=== PATIENT | female | born 1980 | race Caucasian/White ===

== ENCOUNTER 2022-03-12 09:23 | Emergency (ER) | payer OTHER, SELFPAY ==
--- NOTE | ~2022-03-12 | XR_ITS ---
EXAMINATION: XR CHEST CLINICAL INFORMATION: Cough. COMPARISON: None TECHNIQUE: Frontal view of the chest was obtained. FINDINGS: No significant abnormality is noted involving the heart, lungs, mediastinum, bony thorax or soft tissues. XR/XR chest 1V IMPRESSION: No acute cardiopulmonary process.
[2022-03-12 10:10] VITALS: BP 128/77; PULSE 88; RESP 18; TEMP 36.6; BMI 33.8
[2022-03-12] MEDS: Fluorescein Sodium STRIP 1 STRIP EYE-LEFT (12:32)
[2022-03-12] MEDS: Tetracaine HCl/PF 0.5% Oph Sol 4 ML DROPS 3 DROP EYE-LEFT (12:32)
[2022-03-12 12:59] LABS: COVID-19 Test Negative (Negative); IDNOW Serial# 9DB6401D; IDNOW Serial# BCCEAD1C; Influenza A Negative (Negative); Influenza B2 Negative (Negative)
--- NOTE | 2022-03-12 13:53 | ED.GENADULT ---
[facility] - General Adult General Chief complaint: Eye Problems Stated complaint: Eye pain Time Seen by Provider: 03/12/22 11:04 Source: patient Mode of arrival: ambulatory History of Present Illness HPI narrative: 41-year-old female with no significant past medical history presenting to the ED complaining of bilateral eye erythema, pruritus, and watering since yesterday. Also reports nasal congestion, rhinorrhea, cough. Denies fever, chills, ear pain, vision change/loss, SOB/CP, recent travel, sick contacts Onset (ago): day(s) Related Data Previous Rx's Medication Instructions Recorded benzonatate 100 mg capsule 100 mg PO TID PRN cough #14 caps 03/12/22 fluticasone propionate 50 2 spray intranasal DAILY #16 grams 03/12/22 mcg/actuation nasal spray,suspension (Flonase Allergy Relief) olopatadine 0.2 % eye drops 1 drp ophthalmic (eye) DAILY PRN 03/12/22 itching 7 days #2.5 mL Allergies Allergy/AdvReac Type Severity Reaction Status Date / Time No Known Allergies Allergy Verified 03/12/22 10:15 Review of Systems Review of Systems: Constitutional: No Fever, No Chills,No Fatigue, No Malaise ENT/Mouth: No Ear Pain, + Nasal Congestion, No Sinus Pain, No Hoarseness, No sore throat, + Rhinorrhea, No Swallowing Difficulty Eyes: No Eye Pain, No Swelling, + Redness, No Foreign Body, + Discharge, No Vision Changes Cardiovascular: No Chest Pain, No SOB Respiratory: No Cough, No Sputum, No Dyspnea Gastrointestinal: No Nausea, No Vomiting, No Diarrhea, No Constipation, No Abdominal pain Genitourinary: No Dysuria, No Urinary Frequency, No Hematuria Musculoskeletal: No joint pain, No Myalgias, No Joint Swelling Skin: No Skin Lesions, No rash Neuro: No Weakness, No Headache Yes all other systems are reviewed and are negative Constitutional: Constitutional: Reports as per [facility] Past Medical History Attestation statement: The following information was validated with the patient. Social History Social History Advance Directives: No Advance Directives Information Provided: No Physical Exam ED Vital Signs: Vital Signs - 24 hr 03/12/22 10:10 Temperature 97.9 F Pulse Rate 88 Respiratory Rate 18 Blood Pressure 128/77 BMI result Body Mass Index 33.8 Const General: cooperative, healthy appearing, comfortable and no acute distress Orientation/consciousness: patient oriented x3 Limitations: no limitations HENMT Head: Yes normal to inspection and Yes atraumatic Ears: hearing grossly normal bilaterally, external ears normal, TM's normal bilaterally and mastoids normal General nose exam: Normal external nose present Face and sinus: Yes normal facial exam Mouth: Normal oral and palatal mucosa present Throat: Yes posterior oropharynx normal, Yes tonsils normal, Yes uvula midline, No abnormal tonsil, No peritonsillar mass and No uvula laterally displaced Eyes General: appearance normal, both eyes and all related structures Conjunctivae: conjunctival abnormal left conjunctival injection (left) Corneas: corneas normal and fluorescein used (no uptake or ulceration) Pupils: Equal, round and reactive pupils present EOM: EOMs intact bilaterally Direct Ophthalmoscopy: normal light reflex and no photophobia Neck Neck: Yes normal visual inspection and Yes no meningeal signs Resp Effort & Inspection: normal respiratory effort and no respiratory distress Auscultation: clear to auscultation bilaterally, no crackles, no rales and no rhonchi Cardio Rate: regular rate Heart sounds: S1 normal heart sound present and S2 normal heart sound present Skin Rashes: no rashes Wounds: no wounds Neuro General: patient oriented x3, tone normal and no meningeal signs Cranial nerves: Yes Equal, round and reactive pupils present Gait exam (Neuro): Normal gait present Extrem General: Yes normal to inspection Course Course Course Narrative: XR chest 1V IMPRESSION: No acute cardiopulmonary process. 1354--COVID-19 and influenza negative Results discussed with patient including worrisome signs and symptoms and strict return precautions, and when to return to the emergency department. They verbalized understanding and feel safe for discharge at this time. Medications Administered Discontinued Medications Generic Name Dose Route Start Last Admin Trade Name Freq PRN Reason Stop Dose Admin Fluorescein Sodium 1 strip 03/12/22 11:09 03/12/22 12:32 Fluorescein Sodium Strip EYE-LEFT 03/12/22 11:10 1 strip ONCE ONE Administration Tetracaine HCl 3 drop 03/12/22 11:09 03/12/22 12:32 Tetracaine Hcl/Pf 0.5% Oph Mely 4 Ml Drops EYE-LEFT 03/12/22 11:10 3 drop ONCE ONE Administration Medical Decision Making Medical Decision Making MDM Narrative: 41-year-old female with no significant past medical history presenting to the ED complaining of bilateral eye erythema, pruritus, and watering since yesterday. On exam vital signs stable, NAD, nontoxic appearing, bilateral conjunctival injection noted, no fluorescein uptake, no evidence of globe rupture or preseptal/septal cellulitis. Lungs CTA. Concern for viral illness and allergic/viral conjunctivitis. No evidence of corneal abrasion. Lower suspicion for pneumonia Plan: COVID-19/influenza testing, CXR Please refer to course for remaining clinical decision making, interpretation of labs/imaging results, and discussions with consultants and/or family members. Differential Diagnosis Differential Diagnoses: The differential diagnosis associated with the presentation includes as above Lab Data Labs: Lab Results 03/12/22 03/12/22 Range/Units 12:35 12:35 COVID-19 (LILLIE) Negative (Negative) COVID-19 Clin Com See Note Influenza Type A (NEYDA) Negative (Negative) Influenza Type B (NEYDA) Negative (Negative) Influenza A & B Note See Note Radiology Impression Discussion of test interpretation with radiology: I have reviewed the radiologist's reading. Prescription Management I considered prescription management with: Antiviral and Antibiotic Discharge Plan Discharge Clinical Impression: Acute viral syndrome, Acute allergic conjunctivitis Patient Disposition: Home, Self-Care Instructions: Viral Syndrome (ED), Conjunctivitis (ED) Additional Instructions: Your x-rays unremarkable. you Tested negative for COVID-19 and flu Tessalon Perles or cough take as needed. Flonase is a nasal decongestant. Olopatadine are allergic conjunctivitis drops, take as needed Follow-up with your doctor If symptoms persist or worsen return to the emergency department Prescriptions: New olopatadine 0.2 % drops 1 drp ophthalmic (eye) DAILY PRN (Reason: itching) 7 Days Qty: 2.5 0RF benzonatate 100 mg capsule 100 mg PO TID PRN (Reason: cough) Qty: 14 0RF fluticasone propionate [Flonase Allergy Relief] 50 mcg/actuation spray,suspension 2 spray intranasal DAILY Qty: 16 0RF Rx Instructions: administer into each nostril Referrals: Physician,None [Primary Care Provider] - 5 days
== END 2022-03-12 14:30 | disposition home or self-care (01) ==
PROVIDERS: Physician Assistant; Emergency Provider Emergency Medicine
DX: H10.13 Acute atopic conjunctivitis, bilateral (principal); B34.9 Viral infection, unspecified; R05.9 Cough, unspecified; Z20.822 Contact with and (suspected) exposure to COVID-19; Z20.828 Contact with and (suspected) exposure to other viral communicable diseases; Z79.899 Other long term (current) drug therapy
CPT/HCPCS: 71045; 87502; 87635; 99282; 99283